=== PATIENT | male | born 1945 | race Hispanic/Latino ===

== ENCOUNTER 2022-06-21 19:50 | Emergency (ER) | payer MEDICARE ==
[~2022-06-21] VITALS: Ht 162.6 cm; Wt 63.5 kg
[2022-06-21] MEDS ORDERED: DAPA10TA PO (20:49)
[2022-06-21] MEDS ORDERED: METF500S9 PO (20:52)
[2022-06-21] MEDS ORDERED: FURO40TA7 PO (20:52)
[2022-06-21] MEDS ORDERED: TAMS-1 PO (20:52)
[2022-06-21] MEDS ORDERED: APIX5TAB PO (20:52)
[2022-06-21] MEDS ORDERED: CARV3.1262 PO (20:53)
[2022-06-21 21:28] LABS: BASOPHILS % (AUTO) 0.7 % (0.0-5.0); EOSINOPHILS % (AUTO) 0.7 % (0.0-8.0); HEMATOCRIT 46.2 % (42-54); LYMPHOCYTES % (AUTO) 20.4 % (21.0-51.0); MEAN CORPUSCULAR HEMOGLOBIN 28.4 pg (27.0-33.0); MEAN CORPUSCULAR HGB CONC 32.9 g/dL (32.0-36.0); MEAN CORPUSCULAR VOLUME 86.4 fL (79-99); MONOCYTES % (AUTO) 9.3 % (3.0-13.0); NEUTROPHILS % (AUTO) 68.5 % (40.0-77.0); PLATELET COUNT (AUTO) 165 K/uL (130-400); RED BLOOD CELL COUNT(AUTO) 5.35 MIL/uL (4.50-6.20); RED CELL DISTRIBUTION WIDTH 17.6 % (11.0-15.5); WHITE BLOOD COUNT (AUTO) 4.5 K/uL (4.8-10.8)
[2022-06-21 21:48] LABS: CREATININE 2.3 mg/dL (0.5-1.5); POTASSIUM 5.2 mmol/L (3.5-5.1)
[2022-06-21 21:49] LABS: INR 1.43 (0.85-1.15); PROTHROMBIN TIME 15.3 SEC (9.6-11.6)
[2022-06-21 21:51] LABS: PARTIAL THROMBOPLASTIN TIME 29.9 SEC (26.3-35.5)
[2022-06-21 21:52] LABS: ALBUMIN 3.4 g/dL (3.5-5.0); TOTAL PROTEIN, SERUM 7.6 g/dL (6.0-8.3)
[2022-06-21] MEDS ORDERED: HYDR25SU38 RC (22:32)
[2022-06-21] MEDS ORDERED: CLOT12CR TP (22:32)
[2022-06-21 22:51] VITALS: BP 107/74
== END 2022-06-21 22:52 | disposition home or self-care (01) ==
LOC: EDH 19:50
DX: K72.10 Chronic hepatic failure without coma (principal); I50.9 Heart failure, unspecified; B35.6 Tinea cruris; K64.9 Unspecified hemorrhoids; E11.9 Type 2 diabetes mellitus without complications; Z79.01 Long term (current) use of anticoagulants; Z79.84 Long term (current) use of oral hypoglycemic drugs; Z79.899 Other long term (current) drug therapy; Z95.810 Presence of automatic (implantable) cardiac defibrillator
CPT/HCPCS: 36415; 80053; 82270; 83690; 85025; 85610; 85730